=== PATIENT | male | born 1955 | race American Indian/Alaskan Native ===

== ENCOUNTER 2017-09-07 09:48 | Emergency (ER) | payer SELFPAY ==
[2017-09-07 10:16] VITALS: O2SAT 99
--- NOTE | 2017-09-07 11:43 | C.PDOC ---
History Of Present Illness 62-year-old male, presents to the emergency department with complaints of three- day duration of nasal congestion, runny nose, generalized weakness, body aches and a low grade fever. Patient denies nausea/vomiting, back pain, dizziness, symptoms, change in bowel habits or any other associated symptoms. No other complaints at this time. Time Seen by Provider: 09/07/17 11:33 Chief Complaint (Nursing): Flu-like Symptoms History Per: Patient History/Exam Limitations: no limitations Onset/Duration Of Symptoms: Days Current Symptoms Are (Timing): Still Present Past Medical History Reviewed: Historical Data, Nursing Documentation, Vital Signs Vital Signs: Last Vital Signs Temp 98.0 F 09/07/17 10:13 Pulse 104 H 09/07/17 10:13 Resp 18 09/07/17 10:13 BP 106/76 09/07/17 10:13 Pulse Ox 99 09/07/17 11:52 Family History: States: No Known Family Hx - Social History Hx Alcohol Use: No Hx Substance Use: No - Immunization History Hx Tetanus Toxoid Vaccination: No Hx Influenza Vaccination: No Hx Pneumococcal Vaccination: No Review Of Systems Constitutional: Positive for: Fever, Weakness, Malaise ENT: Positive for: Nose Discharge, Nose Congestion Cardiovascular: Negative for: Chest Pain Respiratory: Negative for: Shortness of Breath Gastrointestinal: Negative for: Nausea, Vomiting Musculoskeletal: Negative for: Back Pain Skin: Negative for: Rash Neurological: Negative for: Headache, Dizziness Physical Exam - Physical Exam Appears: Well, Non-toxic, No Acute Distress Skin: Normal Color, Warm, Dry, No Rash Head: Normacephalic Eye(s): bilateral: PERRL Ear(s): Bilateral: Normal Nose: No Flaring, Discharge (scant clear B/L) Oral Mucosa: Moist Throat: Normal, No Erythema, No Drooling Neck: Trachea Midline, Supple, Other ((-) meningeal sign) Cardiovascular: Rhythm Regular Respiratory: No Decreased Breath Sounds, No Accessory Muscle Use, No Stridor, No Wheezing Gastrointestinal/Abdominal: Soft, No Tenderness, No Distention, No Guarding Extremity: Normal ROM, No Deformity, No Swelling Neurological/Psych: Oriented x3, Normal Speech ED Course And Treatment O2 Sat by Pulse Oximetry: 99 (RA) Pulse Ox Interpretation: Normal - Radiology CXR: Interpreted by Me, Viewed By Me, Read By Radiologist CXR Interpretation: Yes: Infiltrates (RML?) Progress Note: On re-eval, pt is afebrile, hemodynamicaly stable. NOn-toxic. Tolerate PO well in ED. PulsEOx 99% rA. ENT: no acute findings. neck: Supple , (-) meningeal sign. Lungs: CTA B/L, BS equal B/L. Abd: benign. Neuorlogicaly intact. CXR review (+)RML, early? Pt has clinical findings c/w acute bronchitis r/o early PNA. Pt advised on course of ds. ref. to f/u with PMD in 2-3 days for re-eval,. return to ED if any worsening or new changes. Disposition Counseled Patient/Family Regarding: Diagnosis, Need For Followup, Rx Given - Disposition Referrals: [facility] [Outside] Disposition: HOME/ ROUTINE Disposition Time: 12:02 Condition: STABLE Additional Instructions: ENCOURAGE FLUIDS TAKE MEDICATION PRESCRIBED FOLLOW UP WITH PMD IN 2-3 DAYS FOR RE-EVALUATION. RETURN TO ED IF ANY WORSENING OR NEW CHANGES. Prescriptions: Albuterol HFA [Ventolin HFA 90 mcg/actuation (8 g)] 1 puff IH Q6 #1 inhaler Benzonatate [Tessalon Perle] 100 mg PO TID #14 capsule Cefdinir [Omnicef] 300 mg PO BID #14 cap Instructions: Acute Bronchitis (ED) Forms: [facility] (Welsh) - Clinical Impression Clinical Impression: Bronchitis, Pneumonia - Scribe Statement The provider has reviewed the documentation as recorded by the Scribe (Alyson Dykes) All medical record entries made by the Scribe were at my direction and personally dictated by me. I have reviewed the chart and agree that the record accurately reflects my personal performance of the history, physical exam, medical decision making, and the department course for this patient. I have also personally directed, reviewed, and agree with the discharge instructions and disposition.
--- NOTE | 2017-09-07 12:06 | RAD ---
HISTORY: Cough COMPARISON: None available. TECHNIQUE: Chest PA and lateral FINDINGS: LUNGS: Minimal patchy opacity at the right middle lobe may reflect atelectasis. Pneumonia cannot be excluded in the proper clinical setting. Please note that chest x-ray has limited sensitivity for the detection of pulmonary masses. PLEURA: No significant pleural effusion identified. No definite pneumothorax . CARDIOVASCULAR: Heart size appears within normal limits. OSSEOUS STRUCTURES: No acute osseous abnormality identified. VISUALIZED UPPER ABDOMEN: Unremarkable. OTHER FINDINGS: None. IMPRESSION: Minimal patchy opacity at the right middle lobe may reflect atelectasis. Pneumonia cannot be excluded in the proper clinical setting.
[2017-09-07 12:24] VITALS: BP 107/73; PULSE 79; RESP 16; TEMP 97.7
== END 2017-09-07 12:24 | disposition home or self-care (01) ==
LOC: C.ER 09:48
DX: J18.9 Pneumonia, unspecified organism (principal); J40 Bronchitis, not specified as acute or chronic